=== PATIENT | female | born 1965 | race Caucasian/White ===

== ENCOUNTER 2023-06-03 19:16 | Outpatient (REF) | payer OTHER, SELFPAY ==
[2023-06-03 21:51] LABS: Hemoglobin A1C 6.7 % (<5.7)
[2023-06-03 21:58] LABS: ALT 48 U/L (14-59); AST 35 U/L (15-37); Albumin 4.1 g/dL (3.4-5.0); Alkaline Phosphatase 93 U/L (46-116); Anion Gap 10.7 mmol/L (3-11); BUN 18 mg/dL (7-18); Bilirubin, Total 0.4 mg/dL (0.2-1.0); CO2 27.3 mmol/L (21.0-32.0); CREATININE 0.9 mg/dL (0.55-1.02); Calcium 9.6 mg/dL (8.5-10.1); Calculated LDL 90 mg/dL (<100); Chloride 102 mmol/L (98-107); Cholesterol 185 mg/dL (<200); Estimated GFR 74.57 (mL/min/1.73m2); Glucose 104 mg/dL (74-106); HDL Cholesterol 48 mg/dL (40-60); Sodium 140 mmol/L (136-145); Total Protein 7.8 g/dL (6.4-8.2); Triglyceride 237 mg/dL (<150)
== END 2023-06-03 19:17 | disposition home or self-care (01) ==
LOC: NCHCN 19:16
PROVIDERS: PCP Neuromusculoskeletal Medicine & OMM; Visit Provider Internal Medicine
DX: E11.9 Type 2 diabetes mellitus without complications (principal)
CPT/HCPCS: 80053; 80061; 83036

== ENCOUNTER 2024-06-12 15:55 | Outpatient (REF) | payer OTHER, SELFPAY ==
[2024-06-12 21:26] LABS: HCT 44.8 % (36.0-46.0); MCH 31.8 pg (27.0-33.0); MCHC 33.5 % (32.0-36.0); MCV 95 fL (80-95); MPV 10.2 fL (8.0-11.0); Platelet Count 266 10^3/uL (130-400); RBC 4.72 10^6/uL (3.93-5.22); RDW 12.5 % (11.7-14.6); RDW-SD 43.9 fL; WBC 7.98 10^3/uL (4.4-10.8)
[2024-06-12 21:54] LABS: ALT 37 U/L (14-59); AST 30 U/L (15-37); Albumin 4.4 g/dL (3.4-5.0); Alkaline Phosphatase 83 U/L (46-116); Anion Gap 8.8 mmol/L (3-11); BUN 16 mg/dL (7-18); Bilirubin, Total 0.5 mg/dL (0.2-1.0); CO2 28.2 mmol/L (21.0-32.0); CREATININE 1.1 mg/dL (0.55-1.02); Calcium 10.1 mg/dL (8.5-10.1); Chloride 106 mmol/L (98-107); Estimated GFR 58.24 (mL/min/1.73m2); Glucose 119 mg/dL (74-106); Potassium 4.1 mmol/L (3.5-5.1); Sodium 143 mmol/L (136-145); Total Protein 8.1 g/dL (6.4-8.2)
[2024-06-12 22:52] LABS: COMMENT (LAB VIEW ONLY) 143.15 mg/dL; Microalb ug/mg Crea 3.2 ug/mg Cr
== END 2024-06-12 15:56 | disposition home or self-care (01) ==
LOC: NCHCN 15:55
PROVIDERS: PCP Neuromusculoskeletal Medicine & OMM; Visit Provider Internal Medicine
DX: E11.9 Type 2 diabetes mellitus without complications (principal); I10 Essential (primary) hypertension
CPT/HCPCS: 80053; 85027; 82043; 82570